=== PATIENT | male | born 1980 | race Caucasian/White ===

== ENCOUNTER 2017-05-23 19:40 | Emergency (ER) | payer MEDICAID, MEDICARE ==
[~2017-05-23] VITALS: Ht 180.3 cm; Wt 93.0 kg
[~2017-05-23 19:40] MED LIST: ALPR0.5T; ARIP1TAB9; HYDR-4683; [UNRECOGNIZED DRUG - OTHER]
[2017-05-23] MEDS ORDERED: LORazepam 2MG/ML-1ML VIAL IV ONE ×2 (20:30→21:45)
[2017-05-23] MEDS ORDERED: SODIUM CHLORIDE 0.9% 1,000 ML IV ONE (20:30)
[2017-05-23 20:31] LABS: Basophils # (auto) 0 uL; Basophils % (auto) 0.3 % (0.0-2.0); Eosinophils # (auto) 0 uL; Eosinophils % (auto) 0.1 % (0.0-7.0); Hematocrit 37.9 % (41.0-53.0); Hemoglobin 12.4 g/dL (13.5-17.5); Lymphocytes # (auto) 0.8 uL; Lymphocytes % (auto) 4.3 % (10.0-50.0); Mean Corpuscular Hemoglobin 28.7 pg (28.0-32.0); Mean Corpuscular Hgb Conc. 32.8 g/dL (32.0-36.0); Mean Corpuscular Volume 87.6 fL (80.0-100.0); Monocytes # (auto) 0.5 uL; Monocytes % (auto) 3.1 % (0.0-12.0); Neutrophils # (auto) 16.5 uL; Neutrophils % (auto) 92.2 % (37.0-80.0); Platelet Count (auto) 240 10^3/uL (140-450); Red Blood Cells 4.33 10^6/uL (4.5-5.90); Red Cell Distribution Width 15.6 % (11.8-14.3); White Blood Cell 17.9 10^3/uL (4.4-10.8)
[2017-05-23 20:53] LABS: INR 0.98 (0.9-1.15); Partial Thromboplastin Time 19.1 sec (22.64-33.71); Prothrombin Time 10.7 sec (9.37-12.3)
[2017-05-23 20:53] LABS: Urine Bacteria NONE SEEN /hpf (None Seen); Urine Blood Negative /uL (Negative); Urine Specific Gravity 1.008 (1.001-1.035); Urine WBC 1 /hpf (0 - 3)
[2017-05-23 21:05] LABS: Phenytoin (Dilantin) < 0.5 ug/mL (10-20); Valproic Acid (Depakene) 3.1 ug/mL (50-100)
[2017-05-23 21:09] LABS: Alcohol, Urine < 3.0 mg/dL (0-5); Amphetamine Screen, Urine NEGATIVE (NEGATIVE); Barbiturate Scree,Urine NEGATIVE (NEGATIVE); Benzodiazephine Screen, Urine POSITIVE (NEGATIVE); Cannabinoid Screen, Urine NEGATIVE (NEGATIVE); Cocaine Screen, Urine NEGATIVE (NEGATIVE); Opiate Scree,Urine POSITIVE (NEGATIVE); Phencyclidine Screen, Urine NEGATIVE (NEGATIVE)
[2017-05-23 21:11] LABS: Alanine Aminotransferase 40 U/L (16-61); Albumin 3.6 g/dL (3.4-5.0); Alkaline Phosphatase 69 U/L (45-117); Anion Gap 8 (5-15); Aspartate Aminotransferase 15 U/L (15-37); BUN/Creatinine Ratio 12.9; Bilirubin, Total 0.1 mg/dL (0.2-1.0); Blood Alcohol < 3.0 mg/dL (0-5); Blood Urea Nitrogen 13 mg/dL (7-18); Calcium 8.5 mg/dL (8.5-10.1); Carbon Dioxide 26 mmol/L (21-32); Chloride 105 mmol/L (98-107); GFR African American 107 mL/min; GFR Non-African American 89 mL/min; Glucose 108 mg/dL (74-106); Magnesium 2.7 mg/dL (1.6-2.6); Potassium 4.4 mmol/L (3.5-5.1); Sodium 139 mmol/L (136-145)
[2017-05-23 23:25] VITALS: BP 153/91
[2017-05-24 00:12] LABS: Lactic Acid w/Reflex 2.7 mmol/L (0.4-2.0)
[2017-05-24] MEDS ORDERED: cefTRIAXone 1GM/10ml IVPUSH 10 ML IV ONE (00:30)
[2017-05-24] MEDS ORDERED: SODIUM CHLORIDE 0.9% 2,000 ML IV ONE (00:30)
[2017-05-24] MEDS ORDERED: MORP60TA25 PO (22:49)
[2017-05-24] MEDS ORDERED: RANI-185 PO (22:49)
[2017-05-24] MEDS ORDERED: PREG100C PO (22:52)
[2017-05-24] MEDS ORDERED: ZOLP10TA PO (22:52)
[2017-05-24] MEDS ORDERED: ALPR2TAB2 PO (22:53)
[2017-05-24] MEDS ORDERED: ESCI10TA PO (22:53)
[2017-05-24] MEDS ORDERED: PRED1PAK10 PO (22:53)
[2017-05-24] MEDS ORDERED: DEXL60CA3 PO (22:53)
[2017-05-24] MEDS ORDERED: PERCOT PO (22:53)
[2017-05-24] MEDS ORDERED: BREX1TAB6 PO (22:53)
[2017-05-24] MEDS ORDERED: ESCI20TA PO (22:53)
== END 2017-05-24 01:36 | disposition home or self-care (01) ==
LOC: EDBD 19:40 → ER 19:40
DX: G40.409 Other generalized epilepsy and epileptic syndromes, not intractable, without status epilepticus (principal); F41.9 Anxiety disorder, unspecified; F32.9 Major depressive disorder, single episode, unspecified; D72.829 Elevated white blood cell count, unspecified; K21.9 Gastro-esophageal reflux disease without esophagitis
CPT/HCPCS: 36415; 70450; 72125; 80053; 80164; 80185; 80307; 80320; 81001; 83605; 83735; 85025; 85610; 85730; 87040; 93005; 96361; 96374; 96375; 96376; 99285; J2060

== ENCOUNTER 2017-07-03 14:17 | Emergency (ER) | payer OTHER ==
[~2017-07-03] VITALS: Ht 182.9 cm; Wt 90.7 kg
[~2017-07-03 14:17] MED LIST changes: -ALPR0.5T; +ALPR2TAB2 PO; -ARIP1TAB9; +BREX1TAB6 PO; +DEXL60CA3 PO; +ESCI10TA PO; +ESCI20TA PO; -HYDR-4683; +MORP60TA25 PO; +PERCOT PO; +PRED1PAK10 PO; +PREG100C PO; +RANI-185 PO; +ZOLP10TA PO; -[UNRECOGNIZED DRUG - OTHER]
[2017-07-03 15:15] LABS: Lymphocytes # (auto) 0.8 uL; Monocytes # (auto) 0.9 uL; Neutrophils # (auto) 15.4 uL; Neutrophils % (auto) 88.7 % (37.0-80.0); White Blood Cell 17.3 10^3/uL (4.4-10.8)
[2017-07-03 15:17] LABS: Basophils # (auto) 0.1 uL; Basophils % (auto) 0.6 % (0.0-2.0); Eosinophils # (auto) 0.1 uL; Eosinophils % (auto) 0.4 % (0.0-7.0); Hematocrit 20.2 % (41.0-53.0); Lymphocytes % (auto) 4.9 % (10.0-50.0); Mean Corpuscular Hgb Conc. 30.1 g/dL (32.0-36.0); Mean Corpuscular Volume 76.3 fL (80.0-100.0); Monocytes % (auto) 5.4 % (0.0-12.0); Nucleated Red Blood Cells % 0.1 %; Platelet Count (auto) 567 10^3/uL (140-450); Red Blood Cells 2.65 10^6/uL (4.5-5.90)
[2017-07-03 15:19] LABS: INR 1.2 (0.9-1.15); Partial Thromboplastin Time 23.7 sec (23.78-33.04); Prothrombin Time 12.7 sec (9.27-12.13)
[2017-07-03 15:30] LABS: Red Cell Distribution Width 25.8 % (11.8-14.3)
[2017-07-03 15:32] LABS: Hemoglobin 6.1 g/dL (13.5-17.5)
[2017-07-03 15:39] LABS: Albumin 2.6 g/dL (3.4-5.0); BUN/Creatinine Ratio 11.9; Bilirubin, Total 0.4 mg/dL (0.2-1.0); Calcium 7.1 mg/dL (8.5-10.1); Magnesium 2.1 mg/dL (1.6-2.6); Potassium 3.6 mmol/L (3.5-5.1); Total Protein 5.6 g/dL (6.4-8.2)
[2017-07-03] MEDS ORDERED: cefTRIAXone 1GM/10ml IVPUSH 10 ML IV ONE (16:45)
[2017-07-03 16:56] VITALS: BP 98/64
[2017-07-03 17:16] VITALS: BP 108/70
[2017-07-03 19:45] VITALS: BP 109/61
== END 2017-07-03 22:52 | disposition left against medical advice (07) ==
LOC: EDBD 14:17 → ER 14:20
DX: J18.9 Pneumonia, unspecified organism (principal); D64.9 Anemia, unspecified; E46 Unspecified protein-calorie malnutrition; R79.89 Other specified abnormal findings of blood chemistry; E83.51 Hypocalcemia; F32.9 Major depressive disorder, single episode, unspecified; F41.1 Generalized anxiety disorder; G89.4 Chronic pain syndrome; R94.5 Abnormal results of liver function studies; K21.9 Gastro-esophageal reflux disease without esophagitis
CPT/HCPCS: 36415; 36430; 71045; 80053; 83605; 83735; 84484; 85025; 85610; 85730; 86850; 86900; 86901; 86920; 87040; 96374; 99285; P9016

== ENCOUNTER 2017-07-19 15:28 | Inpatient (IN) | payer OTHER ==
[~2017-07-19] VITALS: Ht 185.4 cm; Wt 95.4 kg
[2017-07-19] MEDS ORDERED: NALOXONE HCL 0.4 MG/ML VIAL IV ONE ×2 (16:15)
[2017-07-19 16:44] LABS: Hematocrit 19.1 % (41.0-53.0); Red Blood Cells 2.68 10^6/uL (4.5-5.90)
[2017-07-19 16:46] LABS: Mean Corpuscular Hemoglobin 20.3 pg (28.0-32.0); Mean Corpuscular Hgb Conc. 28.5 g/dL (32.0-36.0); Mean Corpuscular Volume 71.1 fL (80.0-100.0); Platelet Count (auto) 541 10^3/uL (140-450)
[2017-07-19 16:59] LABS: Acetaminophen < 2.0 ug/mL (10-30); Salicylate < 1.7 mg/dL (2.8-20.0)
[2017-07-19 17:04] LABS: Red Cell Distribution Width 29.5 % (11.8-14.3)
[2017-07-19 17:06] LABS: Hemoglobin 5.4 g/dL (13.5-17.5); White Blood Cell 34.6 10^3/uL (4.4-10.8)
[2017-07-19 17:07] LABS: Band Neutrophils % (manual) 0; Basophils % (manual) 0 (0.0-2.0); Blast Cells 0; Eosinophils % (manual) 0 (0-7); Promyelocytes % 0; Reactive Lymphocytes 0
[2017-07-19 17:08] LABS: Alanine Aminotransferase 2767 U/L (16-61); Albumin 2.8 g/dL (3.4-5.0); Alkaline Phosphatase 141 U/L (45-117); Anion Gap 19 (5-15); BUN/Creatinine Ratio 8.6; Bilirubin, Total 0.8 mg/dL (0.2-1.0); Blood Alcohol < 3.0 mg/dL (0-5); Blood Urea Nitrogen 33 mg/dL (7-18); Calcium 7.5 mg/dL (8.5-10.1); Carbon Dioxide 20 mmol/L (21-32); Chloride 98 mmol/L (98-107); GFR African American 23 mL/min; GFR Non-African American 19 mL/min; Glucose 126 mg/dL (74-106); Magnesium 3.1 mg/dL (1.6-2.6); Potassium 5.5 mmol/L (3.5-5.1); Sodium 137 mmol/L (136-145); Total Protein 6.1 g/dL (6.4-8.2)
[2017-07-19 17:24] LABS: Lymphocytes % (manual) 11 (10.0-50.0); Metamyelocytes % 4; Monocytes % (manual) 3 (0-12); Myelocytes % 2
[2017-07-19 17:41] LABS: Aspartate Aminotransferase 4486 U/L (15-37)
[2017-07-19] MEDS ORDERED: SODIUM CHLORIDE 0.9% 500 ML IV ONE (18:30)
[2017-07-19] MEDS ORDERED: ACETYLCYSTEINE 20%(200MG/ML) SOLN 30ML PO ONE (18:45)
[2017-07-19] MEDS ORDERED: SODIUM CHLORIDE 0.9% 1,000 ML IV ONE (18:45)
[2017-07-19] MEDS ORDERED: NOREPINEPHRINE 8 MG/250ML KIT 250 ML IV ONE (18:51)
[2017-07-19] MEDS ORDERED: NOREPINEPHRINE 8 MG/250ML KIT 250 ML IV SCH ×2 (19:03→19:15)
[2017-07-19 19:15] VITALS: BP 100/46
[2017-07-19] MEDS ORDERED: OXYCODONE W/ ACETAMINOPHEN 5/325MG TABLET PO PRN (19:15)
[2017-07-19] MEDS ORDERED: DEXTROSE (50%) 50ML SYRG IV PRN (19:15)
[2017-07-19] MEDS: SODIUM CHLORIDE 0.9% 1,000 ML IV SCH (19:19)
[2017-07-19 19:30] VITALS: BP 155/53
[2017-07-19] MEDS ORDERED: ONDANSETRON HCL 4 MG/2 ML VIAL IV PRN (19:30)
[2017-07-19] MEDS ORDERED: HYDROcodone-ACET 5/325MG TAB PO PRN (19:30)
[2017-07-19] MEDS ORDERED: NITROGLYCERIN 0.4 MG SL TAB SL PRN (19:30)
[2017-07-19] MEDS ORDERED: ACETAMINOPHEN 325 MG TAB PO PRN (19:30)
[2017-07-19] MEDS ORDERED: DOCUSATE SOD 100 MG CAP PO PRN (19:30)
[2017-07-19] MEDS ORDERED: LORazepam 2MG/ML-1ML VIAL IV PRN (19:30)
[2017-07-19] MEDS ORDERED: MORPHINE SULF(PF) 0.5MG/ML 10ML VIAL IV PRN (19:30)
[2017-07-19] MEDS ORDERED: PANTOPRAZOLE 40 MG TAB PO ONE (19:30)
[2017-07-19] MEDS ORDERED: SODIUM POLYSTYRENE SULF 15GM/60ML SUSP PO ONE (19:45)
[2017-07-19 19:53] LABS: INR 1.7 (0.9-1.15); Prothrombin Time 17.7 sec (9.27-12.13)
[2017-07-19 20:37] VITALS: BP 132/69
[2017-07-19 21:25] LABS: % Iron Saturation 8.8 % (20-55)
[2017-07-19] MEDS: PREGABALIN 25 MG CAP PO SCH (22:00)
[2017-07-19] MEDS: REXULTI 4 MG PO SCH (22:00)
[2017-07-19] MEDS: ACCU-CHEK COMFORT CURVE STRIP VI SCH (22:00)
[2017-07-19 22:17] LABS: Urine Amorphous Crystal FEW /hpf (None Seen); Urine Bacteria FEW /hpf (None Seen); Urine Blood 2+ /uL (Negative); Urine WBC 1 /hpf (0 - 3)
[2017-07-19 22:19] VITALS: BP 121/69
[2017-07-19 22:29] LABS: Alcohol, Urine < 3.0 mg/dL (0-5); Amphetamine Screen, Urine NEGATIVE (NEGATIVE); Barbiturate Scree,Urine POSITIVE (NEGATIVE); Benzodiazephine Screen, Urine POSITIVE (NEGATIVE); Cannabinoid Screen, Urine NEGATIVE (NEGATIVE); Cocaine Screen, Urine NEGATIVE (NEGATIVE); Opiate Scree,Urine NEGATIVE (NEGATIVE); Phencyclidine Screen, Urine NEGATIVE (NEGATIVE)
[2017-07-19 22:35] VITALS: BP 125/58
[2017-07-19 22:37] LABS: Albumin 2.4 g/dL (3.4-5.0); BUN/Creatinine Ratio 12.4; Calcium 7.2 mg/dL (8.5-10.1); Potassium 5.5 mmol/L (3.5-5.1)
[2017-07-19 22:45] LABS: Bilirubin, Total 1.2 mg/dL (0.2-1.0); Total Protein 5.5 g/dL (6.4-8.2)
[2017-07-19] MEDS: InsuLIN REG 1unit/0.01ml Soln (100units/ml) SC SCH (23:30)
[2017-07-20] VITALS (19 sets, daily range): BP systolic 94–154; BP diastolic 64–98
[2017-07-20] MEDS: SODIUM CHLORIDE 0.9% 1,000 ML IV SCH ×3 (03:39→22:53)
[2017-07-20] MEDS ORDERED: diphenhdrAMINE HCL 50 MG/1 ML VL IV ONE (05:30)
[2017-07-20] MEDS ORDERED: HALOPERIDOL LACTATE 5 MG/ML INJ VIAL IM ONE (05:30)
[2017-07-20] MEDS: methylPREDNISolone SOD SUCC 40 MG/ML VL IV SCH ×3 (06:00→12:38)
[2017-07-20] MEDS: PREGABALIN 25 MG CAP PO SCH ×3 (06:00→21:51)
[2017-07-20 06:25] LABS: Albumin 2.3 g/dL (3.4-5.0); Calcium 6.9 mg/dL (8.5-10.1); Potassium 5.1 mmol/L (3.5-5.1)
[2017-07-20 06:27] LABS: BUN/Creatinine Ratio 17.5; Hematocrit 19.1 % (41.0-53.0); Mean Corpuscular Hemoglobin 22.5 pg (28.0-32.0); Mean Corpuscular Hgb Conc. 30.8 g/dL (32.0-36.0); Platelet Count (auto) 396 10^3/uL (140-450); Red Blood Cells 2.61 10^6/uL (4.5-5.90); White Blood Cell 19.7 10^3/uL (4.4-10.8)
[2017-07-20 06:35] LABS: Red Cell Distribution Width 28.3 % (11.8-14.3)
[2017-07-20 06:37] LABS: Hemoglobin 5.9 g/dL (13.5-17.5)
[2017-07-20 06:38] LABS: Basophils % (manual) 0 (0.0-2.0); Blast Cells 0; Metamyelocytes % 0; Monocytes % (manual) 0 (0-12); Myelocytes % 0; Promyelocytes % 0; Reactive Lymphocytes 0
[2017-07-20] MEDS: ACCU-CHEK COMFORT CURVE STRIP VI SCH ×4 (06:38→21:51)
[2017-07-20] MEDS: InsuLIN REG 1unit/0.01ml Soln (100units/ml) SC SCH ×4 (06:38→22:00)
[2017-07-20 06:39] LABS: Bilirubin, Total 1.1 mg/dL (0.2-1.0); Total Protein 4.9 g/dL (6.4-8.2)
[2017-07-20 07:33] LABS: Band Neutrophils % (manual) 2; Eosinophils % (manual) 1 (0-7); Lymphocytes % (manual) 1 (10.0-50.0)
[2017-07-20] MEDS ORDERED: ACETYLCYSTEINE 20%(200MG/ML) SOLN 30ML PO ONE (09:15)
[2017-07-20] MEDS ORDERED: PANTOPRAZOLE 40 MG TAB PO SCH (10:00)
[2017-07-20] MEDS: MULTIPLE VITAMIN TAB PO SCH (10:16)
[2017-07-20] MEDS: CITALOPRAM HYDROBR 20 MG TAB PO SCH (10:16)
[2017-07-20] MEDS: LEVETIRACETAM 500 MG TAB PO SCH ×2 (12:50→21:50)
[2017-07-20] MEDS ORDERED: ACETYLCYSTEINE 20%(200MG/ML) SOLN 30ML PO SCH ×2 (14:00)
[2017-07-20] MEDS ORDERED: PANTOPRAZOLE 40 MG/10 ML VIAL IV ONE (14:15)
[2017-07-20] MEDS: ACETYLCYSTEINE 200MG/ML IV SOL 10,000 MG in D5W 5% 1,000 ML IV SCH (15:47)
[2017-07-20] MEDS ORDERED: ALBU1AER4 IN (17:55)
[2017-07-20] MEDS ORDERED: LEVE500T22 PO (17:55)
[2017-07-20] MEDS ORDERED: MORP30TA PO (17:55)
[2017-07-20] MEDS ORDERED: FLUT1INH6 IN (17:55)
[2017-07-20] MEDS ORDERED: ONDA8TAB6 PO (17:55)
[2017-07-20 19:06] LABS: Hemoglobin 8.2 g/dL (13.5-17.5)
[2017-07-20 19:08] LABS: Mean Corpuscular Hemoglobin 24.8 pg (28.0-32.0); Mean Corpuscular Hgb Conc. 31.6 g/dL (32.0-36.0); Mean Corpuscular Volume 78.6 fL (80.0-100.0); Platelet Count (auto) 369 10^3/uL (140-450); Red Blood Cells 3.31 10^6/uL (4.5-5.90); White Blood Cell 29.3 10^3/uL (4.4-10.8)
[2017-07-20 19:17] LABS: Protein, Urine 75.5 mg/dL (0.0-11.9)
[2017-07-20 19:28] LABS: Red Cell Distribution Width 25.3 % (11.8-14.3)
[2017-07-20 19:29] LABS: Basophils % (manual) 0 (0.0-2.0); Blast Cells 0; Eosinophils % (manual) 0 (0-7); Metamyelocytes % 0; Myelocytes % 0; Promyelocytes % 0; Reactive Lymphocytes 0
[2017-07-20 19:40] LABS: Band Neutrophils % (manual) 5; Lymphocytes % (manual) 4 (10.0-50.0); Monocytes % (manual) 6 (0-12)
[2017-07-20] MEDS: PANTOPRAZOLE 40 MG/10 ML VIAL IV SCH (21:51)
[2017-07-20] MEDS: REXULTI 4 MG PO SCH (22:00)
[2017-07-21] VITALS: BP 150/92
[2017-07-21 04:00] VITALS: BP 138/86
[2017-07-21 05:07] LABS: Basophils # (auto) 0.1 uL; Eosinophils # (auto) 0 uL; Eosinophils % (auto) 0.1 % (0.0-7.0); Hemoglobin 7.3 g/dL (13.5-17.5); Nucleated Red Blood Cells % 0.2 %
[2017-07-21 05:10] LABS: Basophils % (auto) 0.2 % (0.0-2.0); Hematocrit 22.7 % (41.0-53.0); Lymphocytes # (auto) 0.8 uL; Lymphocytes % (auto) 3.2 % (10.0-50.0); Mean Corpuscular Volume 78.2 fL (80.0-100.0); Monocytes # (auto) 0.8 uL; Monocytes % (auto) 3.2 % (0.0-12.0); Neutrophils # (auto) 22.8 uL; Neutrophils % (auto) 93.3 % (37.0-80.0); Platelet Count (auto) 336 10^3/uL (140-450); White Blood Cell 24.4 10^3/uL (4.4-10.8)
[2017-07-21 05:13] LABS: Red Cell Distribution Width 25.6 % (11.8-14.3)
[2017-07-21 05:21] LABS: INR 1.38 (0.9-1.15); Prothrombin Time 14.5 sec (9.27-12.13)
[2017-07-21 05:31] LABS: Albumin 2.2 g/dL (3.4-5.0); BUN/Creatinine Ratio 29.1; Calcium 7.6 mg/dL (8.5-10.1); Magnesium 2.9 mg/dL (1.6-2.6); Potassium 3.9 mmol/L (3.5-5.1); Total Protein 4.6 g/dL (6.4-8.2)
[2017-07-21] MEDS: ACCU-CHEK COMFORT CURVE STRIP VI SCH ×4 (05:47→21:28)
[2017-07-21] MEDS: SODIUM CHLORIDE 0.9% 1,000 ML IV SCH (05:47)
[2017-07-21] MEDS: PREGABALIN 25 MG CAP PO SCH ×3 (05:47→21:27)
[2017-07-21] MEDS: InsuLIN REG 1unit/0.01ml Soln (100units/ml) SC SCH ×4 (05:48→22:00)
[2017-07-21 07:30] VITALS: BP 141/82
[2017-07-21] MEDS: ACETYLCYSTEINE 200MG/ML IV SOL 10,000 MG in D5W 5% 1,000 ML IV SCH ×2 (09:10→23:49)
[2017-07-21] MEDS ORDERED: methylPREDNISolone SOD SUCC 40 MG/ML VL IV SCH (10:00)
[2017-07-21] MEDS: PANTOPRAZOLE 40 MG/10 ML VIAL IV SCH ×2 (10:38→21:27)
[2017-07-21] MEDS: CITALOPRAM HYDROBR 20 MG TAB PO SCH (10:39)
[2017-07-21] MEDS: LEVETIRACETAM 500 MG TAB PO SCH ×2 (10:39→21:27)
[2017-07-21] MEDS: MULTIPLE VITAMIN TAB PO SCH (10:39)
[2017-07-21 11:52] VITALS: BP 137/82
[2017-07-21] MEDS: SODIUM BICARBONATE 50ML VIAL 50 ML in D5W/SOD CHL 0.45% 1,000 ML IV SCH ×3 (11:55→23:49)
[2017-07-21 16:00] VITALS: BP 118/80
[2017-07-21 20:00] VITALS: BP 137/82
[2017-07-21] MEDS: REXULTI 4 MG PO SCH (21:27)
[2017-07-22] VITALS (8 sets, daily range): BP systolic 119–135; BP diastolic 77–92
[2017-07-22 03:10] LABS: Basophils # (auto) 0 uL; Eosinophils # (auto) 0 uL; Hematocrit 20.7 % (41.0-53.0); Mean Corpuscular Hgb Conc. 31.9 g/dL (32.0-36.0); Monocytes # (auto) 0.6 uL; Nucleated Red Blood Cells % 0.1 %
[2017-07-22 03:11] LABS: Basophils % (auto) 0.2 % (0.0-2.0); Lymphocytes # (auto) 0.5 uL; Lymphocytes % (auto) 2.4 % (10.0-50.0); Mean Corpuscular Hemoglobin 24.7 pg (28.0-32.0); Mean Corpuscular Volume 77.3 fL (80.0-100.0); Monocytes % (auto) 3.2 % (0.0-12.0); Neutrophils # (auto) 17.9 uL; Neutrophils % (auto) 94.2 % (37.0-80.0); Platelet Count (auto) 289 10^3/uL (140-450); Red Blood Cells 2.68 10^6/uL (4.5-5.90)
[2017-07-22 03:16] LABS: Red Cell Distribution Width 26.3 % (11.8-14.3)
[2017-07-22 03:17] LABS: Hemoglobin 6.6 g/dL (13.5-17.5)
[2017-07-22 03:22] LABS: INR 1.33 (0.9-1.15)
[2017-07-22 03:33] LABS: Albumin 1.9 g/dL (3.4-5.0); Calcium 7.5 mg/dL (8.5-10.1); Magnesium 2.4 mg/dL (1.6-2.6); Potassium 3.9 mmol/L (3.5-5.1)
[2017-07-22 03:52] LABS: Bilirubin, Total 0.6 mg/dL (0.2-1.0); Total Protein 4.5 g/dL (6.4-8.2)
[2017-07-22] MEDS: InsuLIN REG 1unit/0.01ml Soln (100units/ml) SC SCH ×5 (06:37→21:51)
[2017-07-22] MEDS: ACCU-CHEK COMFORT CURVE STRIP VI SCH ×4 (06:37→21:51)
[2017-07-22] MEDS: PREGABALIN 25 MG CAP PO SCH ×3 (06:45→21:22)
[2017-07-22] MEDS ORDERED: predniSONE 20 MG TAB PO SCH (10:00)
[2017-07-22] MEDS: PANTOPRAZOLE 40 MG/10 ML VIAL IV SCH ×2 (10:45→21:21)
[2017-07-22] MEDS: CITALOPRAM HYDROBR 20 MG TAB PO SCH (10:45)
[2017-07-22] MEDS: LEVETIRACETAM 500 MG TAB PO SCH ×2 (10:46→21:21)
[2017-07-22] MEDS: MULTIPLE VITAMIN TAB PO SCH (10:46)
[2017-07-22] MEDS ORDERED: LACTULOSE 20Gm/30ML SOLN PO PRN (12:00)
[2017-07-22] MEDS ORDERED: LACTULOSE 20Gm/30ML SOLN PO ONE (12:00)
[2017-07-22] MEDS: SODIUM BICARBONATE 50ML VIAL 50 ML in D5W/SOD CHL 0.45% 1,000 ML IV SCH (12:54)
[2017-07-22] MEDS: ACETYLCYSTEINE 200MG/ML IV SOL 10,000 MG in D5W 5% 1,000 ML IV SCH (18:50)
[2017-07-22] MEDS: DOCUSATE SOD 100 MG CAP PO SCH (21:21)
[2017-07-22] MEDS: REXULTI 4 MG PO SCH (21:28)
[2017-07-22] MEDS ORDERED: ZOLPIDEM TARTRATE 5 MG TAB PO ONE (22:00)
[2017-07-23] VITALS (7 sets, daily range): BP systolic 105–143; BP diastolic 70–89
[2017-07-23] MEDS: SODIUM BICARBONATE 50ML VIAL 50 ML in D5W/SOD CHL 0.45% 1,000 ML IV SCH ×2 (03:00→17:51)
[2017-07-23 05:33] LABS: Basophils # (auto) 0 uL; Basophils % (auto) 0.2 % (0.0-2.0); Eosinophils # (auto) 0 uL; Lymphocytes # (auto) 0.8 uL
[2017-07-23 05:36] LABS: Eosinophils % (auto) 0.1 % (0.0-7.0); Hemoglobin 8.8 g/dL (13.5-17.5); Lymphocytes % (auto) 4.6 % (10.0-50.0); Mean Corpuscular Hemoglobin 26.4 pg (28.0-32.0); Mean Corpuscular Hgb Conc. 32.7 g/dL (32.0-36.0); Mean Corpuscular Volume 80.8 fL (80.0-100.0); Monocytes # (auto) 1.2 uL; Monocytes % (auto) 6.5 % (0.0-12.0); Neutrophils # (auto) 16.3 uL; Neutrophils % (auto) 88.6 % (37.0-80.0); Nucleated Red Blood Cells % 0.1 %; Platelet Count (auto) 251 10^3/uL (140-450); Red Blood Cells 3.35 10^6/uL (4.5-5.90); White Blood Cell 18.4 10^3/uL (4.4-10.8)
[2017-07-23 05:57] LABS: Albumin 2.1 g/dL (3.4-5.0); BUN/Creatinine Ratio 24.4; Calcium 7.7 mg/dL (8.5-10.1); Potassium 3.9 mmol/L (3.5-5.1)
[2017-07-23 06:06] LABS: Bilirubin, Total 0.8 mg/dL (0.2-1.0); Total Protein 4.6 g/dL (6.4-8.2)
[2017-07-23] MEDS: InsuLIN REG 1unit/0.01ml Soln (100units/ml) SC SCH ×4 (06:06→21:53)
[2017-07-23] MEDS: ACCU-CHEK COMFORT CURVE STRIP VI SCH ×4 (06:06→21:32)
[2017-07-23] MEDS: PREGABALIN 25 MG CAP PO SCH ×3 (06:07→21:30)
[2017-07-23] MEDS: MULTIPLE VITAMIN TAB PO SCH (09:57)
[2017-07-23] MEDS: LEVETIRACETAM 500 MG TAB PO SCH ×2 (09:57→21:30)
[2017-07-23] MEDS: DOCUSATE SOD 100 MG CAP PO SCH ×2 (09:57→21:30)
[2017-07-23] MEDS: CITALOPRAM HYDROBR 20 MG TAB PO SCH (09:57)
[2017-07-23] MEDS: PANTOPRAZOLE 40 MG/10 ML VIAL IV SCH ×2 (09:57→21:30)
[2017-07-23 14:31] LABS: Albumin 2.3 g/dL (3.4-5.0); Bilirubin, Direct 0.3 mg/dL (0-0.2); Bilirubin, Total 0.8 mg/dL (0.2-1.0); Total Protein 4.9 g/dL (6.4-8.2)
[2017-07-23] MEDS: ENOXAPARIN SOD 100 MG/1 ML SYRINGE SC SCH ×2 (15:48→21:32)
[2017-07-23] MEDS: REXULTI 4 MG PO SCH (21:30)
[2017-07-23] MEDS: ZOLPIDEM TARTRATE 5 MG TAB PO PRN (21:50)
[2017-07-24 03:42] VITALS: BP 121/88
[2017-07-24 03:56] LABS: Basophils # (auto) 0 uL; Basophils % (auto) 0.2 % (0.0-2.0); Eosinophils # (auto) 0.3 uL; Eosinophils % (auto) 1.5 % (0.0-7.0); Hematocrit 29.2 % (41.0-53.0); Hemoglobin 9.5 g/dL (13.5-17.5); Lymphocytes # (auto) 1.6 uL; Lymphocytes % (auto) 8.8 % (10.0-50.0); Mean Corpuscular Hemoglobin 25.8 pg (28.0-32.0); Mean Corpuscular Hgb Conc. 32.4 g/dL (32.0-36.0); Mean Corpuscular Volume 79.5 fL (80.0-100.0); Monocytes # (auto) 1.1 uL; Monocytes % (auto) 6.1 % (0.0-12.0); Neutrophils # (auto) 14.7 uL; Neutrophils % (auto) 83.4 % (37.0-80.0); Nucleated Red Blood Cells % 0.1 %; Platelet Count (auto) 283 10^3/uL (140-450); Red Blood Cells 3.67 10^6/uL (4.5-5.90); White Blood Cell 17.6 10^3/uL (4.4-10.8)
[2017-07-24 04:07] LABS: Red Cell Distribution Width 23.8 % (11.8-14.3)
[2017-07-24 04:15] LABS: Albumin 2.3 g/dL (3.4-5.0); Calcium 7.3 mg/dL (8.5-10.1); Potassium 3.4 mmol/L (3.5-5.1)
[2017-07-24 04:17] LABS: BUN/Creatinine Ratio 18.2
[2017-07-24 04:20] LABS: Bilirubin, Total 1.2 mg/dL (0.2-1.0); Total Protein 5.1 g/dL (6.4-8.2)
[2017-07-24] MEDS: PREGABALIN 25 MG CAP PO SCH ×3 (05:57→21:43)
[2017-07-24] MEDS: ACCU-CHEK COMFORT CURVE STRIP VI SCH ×4 (06:07→21:43)
[2017-07-24] MEDS: InsuLIN REG 1unit/0.01ml Soln (100units/ml) SC SCH ×4 (06:07→21:43)
[2017-07-24] MEDS: DOCUSATE SOD 100 MG CAP PO SCH ×2 (10:00→21:50)
[2017-07-24] MEDS: ENOXAPARIN SOD 100 MG/1 ML SYRINGE SC SCH ×2 (10:43→21:44)
[2017-07-24] MEDS: LEVETIRACETAM 500 MG TAB PO SCH ×2 (10:43→21:43)
[2017-07-24] MEDS: MULTIPLE VITAMIN TAB PO SCH (10:43)
[2017-07-24] MEDS: CITALOPRAM HYDROBR 20 MG TAB PO SCH (10:43)
[2017-07-24] MEDS: PANTOPRAZOLE 40 MG/10 ML VIAL IV SCH ×2 (10:44→21:42)
[2017-07-24] MEDS: SODIUM BICARBONATE 50ML VIAL 50 ML in D5W/SOD CHL 0.45% 1,000 ML IV SCH (10:44)
[2017-07-24 12:00] VITALS: BP 136/83
[2017-07-24 15:57] VITALS: BP 132/88
[2017-07-24 19:53] VITALS: BP 153/83
[2017-07-24] MEDS: REXULTI 4 MG PO SCH (21:43)
[2017-07-24] MEDS: ZOLPIDEM TARTRATE 5 MG TAB PO PRN (21:43)
[2017-07-25] VITALS: BP 118/81
[2017-07-25 04:00] VITALS: BP 114/70
[2017-07-25 06:02] LABS: Basophils # (auto) 0 uL; Basophils % (auto) 0.1 % (0.0-2.0); Eosinophils # (auto) 0.5 uL; Lymphocytes # (auto) 1.2 uL; Mean Corpuscular Volume 78.1 fL (80.0-100.0); Monocytes # (auto) 1.1 uL
[2017-07-25 06:04] LABS: Hematocrit 27.1 % (41.0-53.0); Lymphocytes % (auto) 10.8 % (10.0-50.0); Mean Corpuscular Hemoglobin 25.9 pg (28.0-32.0); Mean Corpuscular Hgb Conc. 33.1 g/dL (32.0-36.0); Monocytes % (auto) 10.3 % (0.0-12.0); Neutrophils # (auto) 8.3 uL; Neutrophils % (auto) 74.8 % (37.0-80.0); Platelet Count (auto) 273 10^3/uL (140-450); Red Blood Cells 3.47 10^6/uL (4.5-5.90); White Blood Cell 11.1 10^3/uL (4.4-10.8)
[2017-07-25 06:14] LABS: Potassium 3.2 mmol/L (3.5-5.1)
[2017-07-25] MEDS: ACCU-CHEK COMFORT CURVE STRIP VI SCH ×2 (06:16→11:30)
[2017-07-25] MEDS: InsuLIN REG 1unit/0.01ml Soln (100units/ml) SC SCH ×2 (06:16→11:30)
[2017-07-25] MEDS: PREGABALIN 25 MG CAP PO SCH (06:16)
[2017-07-25 06:21] LABS: Albumin 2.1 g/dL (3.4-5.0); Calcium 7.2 mg/dL (8.5-10.1)
[2017-07-25 06:23] LABS: Bilirubin, Total 1.2 mg/dL (0.2-1.0)
[2017-07-25 08:00] VITALS: BP 113/71
[2017-07-25] MEDS: DOCUSATE SOD 100 MG CAP PO SCH (10:00)
[2017-07-25] MEDS: LEVETIRACETAM 500 MG TAB PO SCH (10:00)
[2017-07-25] MEDS: ENOXAPARIN SOD 100 MG/1 ML SYRINGE SC SCH (10:32)
[2017-07-25] MEDS: MULTIPLE VITAMIN TAB PO SCH (10:32)
[2017-07-25] MEDS: PANTOPRAZOLE 40 MG/10 ML VIAL IV SCH (10:32)
[2017-07-25] MEDS: CITALOPRAM HYDROBR 20 MG TAB PO SCH (10:33)
[2017-07-25 13:01] VITALS: BP 113/71
== END 2017-07-25 12:16 | disposition home or self-care (01) | DRG 917 ==
LOC: EDBD 15:28 → ER 15:34 → OVERFLOW 15:35 → DOU IN ICU 07-20 16:54
PROVIDERS: ADMIT Nurse Practitioner Family; ATTEND Family Medicine
PROC: 30233N1 Transfusion of Nonautologous Red Blood Cells into Peripheral Vein, Percutaneous Approach (ICD-10-PCS; principal; 2017-07-19)
DX: T40.3X1A Poisoning by methadone, accidental (unintentional), initial encounter (principal); G92 Toxic encephalopathy; N17.0 Acute kidney failure with tubular necrosis; E43 Unspecified severe protein-calorie malnutrition; J18.9 Pneumonia, unspecified organism; J96.01 Acute respiratory failure with hypoxia; N18.4 Chronic kidney disease, stage 4 (severe); D50.9 Iron deficiency anemia, unspecified; E11.21 Type 2 diabetes mellitus with diabetic nephropathy; E66.9 Obesity, unspecified; E83.41 Hypermagnesemia; E87.5 Hyperkalemia; E83.51 Hypocalcemia; J45.909 Unspecified asthma, uncomplicated; K21.9 Gastro-esophageal reflux disease without esophagitis; E11.22 Type 2 diabetes mellitus with diabetic chronic kidney disease; E11.65 Type 2 diabetes mellitus with hyperglycemia; F32.9 Major depressive disorder, single episode, unspecified; F41.9 Anxiety disorder, unspecified; G40.409 Other generalized epilepsy and epileptic syndromes, not intractable, without status epilepticus; G89.4 Chronic pain syndrome; I80.8 Phlebitis and thrombophlebitis of other sites; K44.9 Diaphragmatic hernia without obstruction or gangrene; K71.6 Toxic liver disease with hepatitis, not elsewhere classified; K76.0 Fatty (change of) liver, not elsewhere classified; Y92.89 Other specified places as the place of occurrence of the external cause; Z79.899 Other long term (current) drug therapy; Z80.0 Family history of malignant neoplasm of digestive organs; Z82.49 Family history of ischemic heart disease and other diseases of the circulatory system; Z82.5 Family history of asthma and other chronic lower respiratory diseases; Z83.2 Family history of diseases of the blood and blood-forming organs and certain disorders involving the immune mechanism; Z87.11 Personal history of peptic ulcer disease; Z98.84 Bariatric surgery status; Z88.8 Allergy status to other drugs, medicaments and biological substances; Z88.1 Allergy status to other antibiotic agents; Z88.2 Allergy status to sulfonamides; Z68.27 Body mass index [BMI] 27.0-27.9, adult
CPT/HCPCS: 36415; 36430; 70450; 71045; 74176; 76705; 76775; 80053; 80076; 80307; 80320; 80329; 81001; 82140; 82550; 82570; 82962; 83036; 83540; 83550; 83605; 83735; 84156; 84300; 84443; 85007; 85025; 85027; 85610; 86704; 86706; 86708; 86803; 86850; 86900; 86901; 86920; 87081; 87086; 87340; 93005; 93971; 95819; 96361; 96374; 97530; 99291; C9113; G0378; J1815

== ENCOUNTER 2017-12-20 11:05 | Emergency (ER) | payer OTHER ==
[~2017-12-20] VITALS: Ht 182.9 cm; Wt 86.2 kg
[~2017-12-20 11:05] MED LIST changes: +ALBU1AER4 IN; +FLUT1INH6 IN; +LEVE500T22 PO; +MORP30TA PO; -MORP60TA25 PO; +ONDA-143 PO
[2017-12-20 11:12] VITALS: BP 120/76
[2017-12-20] MEDS ORDERED: TETANUS-DIPTH-ACEL PERTUSSIS 0.5ML SYRG IM ONE (12:45)
== END 2017-12-20 13:17 | disposition home or self-care (01) ==
LOC: ER 11:05
DX: S61.214A Laceration without foreign body of right ring finger without damage to nail, initial encounter (principal); J45.909 Unspecified asthma, uncomplicated; K21.9 Gastro-esophageal reflux disease without esophagitis; Z88.1 Allergy status to other antibiotic agents; Z88.8 Allergy status to other drugs, medicaments and biological substances; Z88.2 Allergy status to sulfonamides; Z79.51 Long term (current) use of inhaled steroids; Z79.891 Long term (current) use of opiate analgesic; Z79.899 Other long term (current) drug therapy; W26.0XXA Contact with knife, initial encounter; Y93.89 Activity, other specified; Y99.8 Other external cause status; Y92.89 Other specified places as the place of occurrence of the external cause
CPT/HCPCS: 12001; 90471; 90715

== ENCOUNTER 2021-04-15 07:53 | Inpatient (IN) | payer OTHER ==
[~2021-04-15] VITALS: Ht 170.2 cm; Wt 74.0 kg
[~2021-04-15 07:53] MED LIST changes: -DEXL60CA3 PO; +DEXL60CA4 PO; -LEVE500T22 PO; +LEVE500T32 PO
[2021-04-15] MEDS ORDERED: NALOXONE HCL 0.4 MG/ML VIAL IM ONE (08:15)
[2021-04-15 08:44] LABS: Basophils # (auto) 0 10 ^3/uL (0-0.2); Basophils % (auto) 0.1 % (0.0-2.0); Eosinophils # (auto) 0 10 ^3/uL (0-0.8); Eosinophils % (auto) 0.2 % (0.0-7.0); Hematocrit 44.1 % (41.0-53.0); Hemoglobin 14.6 g/dL (13.5-17.5); Lymphocytes # (auto) 0.5 10 ^3/uL (0.4-5.4); Lymphocytes % (auto) 4.5 % (10.0-50.0); Mean Corpuscular Hemoglobin 28.3 pg (28.0-32.0); Mean Corpuscular Hgb Conc. 33.1 g/dL (32.0-36.0); Mean Corpuscular Volume 85.5 fL (80.0-100.0); Monocytes # (auto) 0.8 10 ^3/uL (0-1.3); Monocytes % (auto) 7.7 % (0.0-12.0); Neutrophils # (auto) 8.8 10 ^3/uL (1.6-8.6); Neutrophils % (auto) 87.5 % (37.0-80.0); Red Blood Cells 5.16 10^6/uL (4.5-5.90); White Blood Cell 10.1 10^3/uL (4.4-10.8)
[2021-04-15 09:00] LABS: Albumin 3.6 g/dL (3.4-5.0); Anion Gap 7 (5-15); Blood Alcohol < 3.0 mg/dL (0-5); Blood Urea Nitrogen 11 mg/dL (7-18); Calcium 7.8 mg/dL (8.5-10.1); Carbon Dioxide 27 mmol/L (21-32); Chloride 108 mmol/L (98-107); Glucose 95 mg/dL (74-106); Potassium 3.6 mmol/L (3.5-5.1); Sodium 142 mmol/L (136-145)
[2021-04-15 09:03] LABS: Alanine Aminotransferase 25 U/L (16-61); Alkaline Phosphatase 125 U/L (45-117); Aspartate Aminotransferase 19 U/L (15-37); BUN/Creatinine Ratio 8.3; Bilirubin, Total 0.4 mg/dL (0.2-1.0); GFR African American 77 mL/min; GFR Non-African American 63 mL/min; Total Protein 6.8 g/dL (6.4-8.2)
[2021-04-15] MEDS ORDERED: NALOXONE HCL 1MG/ML 2ML SYRINGE ONE (09:11)
[2021-04-15] MEDS ORDERED: NALOXONE HCL 1MG/ML 2ML SYRINGE IV ONE (09:15)
[2021-04-15 10:11] LABS: Acetaminophen < 2.0 ug/mL (10-30); Salicylate < 1.7 mg/dL (2.8-20.0)
[2021-04-15 10:33] LABS: Alcohol, Urine < 3.0 mg/dL (0-10); Amphetamine Screen, Urine NEGATIVE (NEGATIVE); Barbiturate Scree,Urine NEGATIVE (NEGATIVE); Benzodiazephine Screen, Urine POSITIVE (NEGATIVE); Cannabinoid Screen, Urine NEGATIVE (NEGATIVE); Cocaine Screen, Urine NEGATIVE (NEGATIVE); Opiate Scree,Urine POSITIVE (NEGATIVE); Phencyclidine Screen, Urine NEGATIVE (NEGATIVE)
[2021-04-15 12:59] LABS: Urine Bacteria NONE SEEN /hpf (None Seen); Urine Blood Negative /uL (Negative); Urine Hyaline Cast FEW /lpf (0 - 2); Urine WBC 1 /hpf (0 - 3)
[2021-04-15] MEDS ORDERED: NITROGLYCERIN 0.4 MG SL TAB SL PRN (14:45)
[2021-04-15] MEDS ORDERED: SODIUM CHLORIDE 0.9% 1,000 ML IV ONE (14:45)
[2021-04-15] MEDS ORDERED: MORPHINE SULFATE INJECTION 2 MG/ML SYRG IV PRN (14:45)
[2021-04-15] MEDS ORDERED: ENOXAPARIN SOD 80 MG/0.8ML SYRINGE SC ONE (15:15)
[2021-04-15] MEDS ORDERED: IPRATROPIUM BROM 0.5 MG/2.5ML INH SOL NEB ONE (16:00)
[2021-04-15] MEDS ORDERED: DOCUSATE SOD 100 MG CAP PO PRN (16:00)
[2021-04-15] MEDS ORDERED: PANTOPRAZOLE 40 MG/10 ML VIAL INJ IV ONE (16:00)
[2021-04-15] MEDS ORDERED: LORazepam 2MG/ML-1ML VIAL IV PRN (16:00)
[2021-04-15] MEDS ORDERED: THIAMINE 100mg/ml INJ (200mg/2ml VIAL) IV ONE (16:00)
[2021-04-15] MEDS ORDERED: FOLIC ACID 1 MG TAB PO ONE (16:00)
[2021-04-15] MEDS ORDERED: ALBUTEROL SULF 2.5 MG/0.5ML(0.5%) NEB SOLN NEB ONE (16:00)
[2021-04-15] MEDS ORDERED: BUDESONIDE (INHALATION) 0.5 MG/2 ML NEB NEB ONE (16:00)
[2021-04-15] MEDS ORDERED: MONTELUKAST SODIUM 10 MG TAB PO ONE (16:00)
[2021-04-15] MEDS ORDERED: ONDANSETRON HCL 4 MG/2 ML VIAL IV PRN (16:00)
[2021-04-15] MEDS ORDERED: hydrALAZINE HCL 20 MG/ML VL IV PRN (16:00)
[2021-04-15] MEDS ORDERED: MORPHINE SULFATE 4 MG/ML SYR/VIAL IV PRN (16:00)
[2021-04-15] MEDS ORDERED: LACTULOSE 20Gm/30ML SOLN PO PRN (16:00)
[2021-04-15] MEDS ORDERED: SUCRALFATE 1 GM/10 ML ORAL SUSP PO ONE (16:00)
[2021-04-15] MEDS ORDERED: MULTIPLE VITAMINS W/ MINERALS TAB PO ONE (16:00)
[2021-04-15] MEDS ORDERED: levoFLOXacin 500MG 100 ML IV ONE (16:15)
[2021-04-15] MEDS ORDERED: methylPREDNISolone SOD SUCC 125 MG/2 ML VL IV ONE (16:15)
[2021-04-15] MEDS ORDERED: ACETAMINOPHEN 325 MG TAB PO PRN (16:15)
[2021-04-15 16:24] VITALS: BP 109/79
[2021-04-15 16:53] LABS: Magnesium 2.3 mg/dL (1.6-2.6); Phosphorus 4.3 mg/dL (2.5-4.90)
[2021-04-15] MEDS: SODIUM CHLORIDE 0.9% 1,000 ML IV SCH (17:45)
[2021-04-15] MEDS ORDERED: IPRATROPIUM BROM 0.5 MG/2.5ML INH SOL NEB SCH (18:00)
[2021-04-15 18:24] VITALS: BP 95/55
[2021-04-15 19:00] VITALS: BP 95/55
[2021-04-15] MEDS: CALCIUM W/VIT D (600MG/400IU) TAB PO SCH (20:00)
[2021-04-15] MEDS ORDERED: PANT40TA2 PO (20:24)
[2021-04-15] MEDS ORDERED: CLON0.5T3 PO (20:24)
[2021-04-15] MEDS ORDERED: BUTA-251 PO (20:24)
[2021-04-15] MEDS ORDERED: BREX1TAB5 PO (20:24)
[2021-04-15] MEDS ORDERED: VORT1TAB3 PO (20:24)
[2021-04-15 20:56] LABS: INR 1.36 (0.9-1.15); Partial Thromboplastin Time 34.7 sec (23.6-33.0)
[2021-04-15] MEDS: SUCRALFATE 1 GM/10 ML ORAL SUSP PO SCH (21:46)
[2021-04-15] MEDS: methylPREDNISolone SOD SUCC 40 MG/ML VL IV SCH (21:46)
[2021-04-15] MEDS: ATORVASTATIN 20 MG TAB PO SCH (21:47)
[2021-04-15] MEDS: QUEtiapine FUMARATE 25 MG TAB PO SCH (21:47)
[2021-04-15] MEDS: levETIRAcetam 500 MG TAB PO SCH (21:47)
[2021-04-15] MEDS: LORazepam 0.5 MG TAB PO PRN (21:47)
[2021-04-15] MEDS: GABAPENTIN 300 MG CAP PO SCH (21:47)
[2021-04-15 22:00] VITALS: BP 108/66
[2021-04-15] MEDS: IPRATROPIUM BROM 0.5 MG/2.5ML INH SOL NEB PRN (22:19)
[2021-04-15] MEDS: BUDESONIDE (INHALATION) 0.5 MG/2 ML NEB NEB SCH (22:19)
[2021-04-15] MEDS: ACETYLCYSTEINE 10 %(100MG/ML) SOL 4ML NEB SCH (22:19)
[2021-04-15] MEDS: ALBUTEROL SULF 2.5 MG/0.5ML(0.5%) NEB SOLN NEB PRN (22:19)
[2021-04-16 05:00] VITALS: BP 90/56
[2021-04-16] MEDS: SUCRALFATE 1 GM/10 ML ORAL SUSP PO SCH ×4 (05:48→21:21)
[2021-04-16] MEDS: methylPREDNISolone SOD SUCC 40 MG/ML VL IV SCH (05:48)
[2021-04-16] MEDS: GABAPENTIN 300 MG CAP PO SCH ×3 (05:48→21:21)
[2021-04-16 06:58] LABS: Basophils # (auto) 0 10 ^3/uL (0-0.2); Eosinophils # (auto) 0 10 ^3/uL (0-0.8); Hematocrit 39.7 % (41.0-53.0); Hemoglobin 13.2 g/dL (13.5-17.5); Lymphocytes # (auto) 0.4 10 ^3/uL (0.4-5.4); Lymphocytes % (auto) 5.5 % (10.0-50.0); Mean Corpuscular Hemoglobin 28.3 pg (28.0-32.0); Mean Corpuscular Hgb Conc. 33.3 g/dL (32.0-36.0); Monocytes # (auto) 0.1 10 ^3/uL (0-1.3); Monocytes % (auto) 1.3 % (0.0-12.0); Neutrophils # (auto) 6.8 10 ^3/uL (1.6-8.6); Neutrophils % (auto) 93.2 % (37.0-80.0); Red Blood Cells 4.67 10^6/uL (4.5-5.90); White Blood Cell 7.3 10^3/uL (4.4-10.8)
[2021-04-16 07:11] LABS: Potassium 4.1 mmol/L (3.5-5.1)
[2021-04-16 07:12] LABS: INR 1.21 (0.9-1.15); Partial Thromboplastin Time 28.5 sec (23.6-33.0)
[2021-04-16] MEDS: ALBUTEROL SULF 2.5 MG/0.5ML(0.5%) NEB SOLN NEB PRN ×2 (07:16→18:08)
[2021-04-16] MEDS: IPRATROPIUM BROM 0.5 MG/2.5ML INH SOL NEB PRN ×2 (07:16→18:07)
[2021-04-16] MEDS: ACETYLCYSTEINE 10 %(100MG/ML) SOL 4ML NEB SCH (07:16)
[2021-04-16 07:20] LABS: Albumin 3.2 g/dL (3.4-5.0); Bilirubin, Total 0.3 mg/dL (0.2-1.0); CRP High Sensitivity 5.4 mg/dL (< 0.3); Magnesium 2.4 mg/dL (1.6-2.6); Phosphorus 3.4 mg/dL (2.5-4.90); Total Protein 6.3 g/dL (6.4-8.2); Uric Acid 5.5 mg/dL (3.5-7.2)
[2021-04-16 07:24] LABS: Red Cell Distribution Width 20.1 % (11.8-14.3)
[2021-04-16 08:59] VITALS: BP 92/50
[2021-04-16] MEDS: CALCIUM W/VIT D (600MG/400IU) TAB PO SCH ×2 (09:00→17:54)
[2021-04-16] MEDS: CHOLECALCIFEROL (VITD3) 2,000 UNIT CAP/TAB PO SCH (09:00)
[2021-04-16] MEDS: levETIRAcetam 500 MG TAB PO SCH ×2 (09:01→21:22)
[2021-04-16] MEDS: MULTIPLE VITAMINS W/ MINERALS TAB PO SCH (09:01)
[2021-04-16] MEDS: CYANOCOBALAMIN 500 MCG TAB PO SCH (09:01)
[2021-04-16] MEDS: CITALOPRAM HYDROBR 20 MG TAB PO SCH (09:02)
[2021-04-16] MEDS: ASPirin 81 mg TAB PO SCH (09:02)
[2021-04-16] MEDS: FOLIC ACID 1 MG TAB PO SCH (09:02)
[2021-04-16] MEDS: LORazepam 0.5 MG TAB PO PRN ×2 (09:18→21:21)
[2021-04-16] MEDS ORDERED: ONDA-180 PO (10:00)
[2021-04-16] MEDS ORDERED: PANT40TA2 PO (10:00)
[2021-04-16] MEDS ORDERED: BREX1TAB5 PO (10:00)
[2021-04-16] MEDS ORDERED: VORT1TAB3 PO (10:00)
[2021-04-16] MEDS ORDERED: ALBU1AER4 IN (10:00)
[2021-04-16] MEDS ORDERED: PANTOPRAZOLE 40 MG/10 ML VIAL INJ IV SCH (10:00)
[2021-04-16] MEDS ORDERED: ENOXAPARIN SOD 80 MG/0.8ML SYRINGE SC SCH (10:00)
[2021-04-16] MEDS ORDERED: ESCI20TA PO (10:00)
[2021-04-16] MEDS ORDERED: levoFLOXacin 500MG 100 ML IV SCH (10:00)
[2021-04-16] MEDS ORDERED: FLUT1INH6 IN (10:00)
[2021-04-16] MEDS: SODIUM CHLORIDE 0.9% 1,000 ML IV SCH (11:39)
[2021-04-16] MEDS: BUDESONIDE (INHALATION) 0.5 MG/2 ML NEB NEB SCH ×2 (11:46→18:07)
[2021-04-16 13:00] VITALS: BP 91/54
[2021-04-16] MEDS ORDERED: hydrALAZINE HCL 20 MG/ML VL IV PRN (14:00)
[2021-04-16] MEDS ORDERED: LACTULOSE 20Gm/30ML SOLN PO PRN (14:00)
[2021-04-16 16:54] VITALS: BP 91/51
[2021-04-16] MEDS ORDERED: OXYCODONE W/ ACETAMINOPHEN 5/325MG TABLET PO PRN (17:30)
[2021-04-16] MEDS: ATORVASTATIN 20 MG TAB PO SCH (21:22)
[2021-04-16] MEDS: MORPHINE SULF 30 mg ER tab PO SCH (21:23)
[2021-04-16] MEDS: QUEtiapine FUMARATE 25 MG TAB PO SCH (21:23)
[2021-04-16 22:00] VITALS: BP 104/53
[2021-04-16] MEDS ORDERED: MONTELUKAST SODIUM 10 MG TAB PO SCH (22:00)
[2021-04-17 05:00] VITALS: BP 96/60
[2021-04-17] MEDS: GABAPENTIN 300 MG CAP PO SCH ×2 (06:34→14:00)
[2021-04-17] MEDS: SUCRALFATE 1 GM/10 ML ORAL SUSP PO SCH ×2 (06:35→11:30)
[2021-04-17 09:00] VITALS: BP 97/58
[2021-04-17] MEDS: BUDESONIDE (INHALATION) 0.5 MG/2 ML NEB NEB SCH (10:00)
[2021-04-17] MEDS ORDERED: ENOXAPARIN SOD 40 MG/0.4 ML SYRINGE SC SCH (10:00)
[2021-04-17] MEDS: CALCIUM W/VIT D (600MG/400IU) TAB PO SCH (10:09)
[2021-04-17] MEDS: ASPirin 81 mg TAB PO SCH (10:09)
[2021-04-17] MEDS: levETIRAcetam 500 MG TAB PO SCH (10:09)
[2021-04-17] MEDS: CITALOPRAM HYDROBR 20 MG TAB PO SCH (10:09)
[2021-04-17] MEDS: FOLIC ACID 1 MG TAB PO SCH (10:09)
[2021-04-17] MEDS: CYANOCOBALAMIN 500 MCG TAB PO SCH (10:10)
[2021-04-17] MEDS: MULTIPLE VITAMINS W/ MINERALS TAB PO SCH (10:10)
[2021-04-17] MEDS: CHOLECALCIFEROL (VITD3) 2,000 UNIT CAP/TAB PO SCH (10:10)
[2021-04-17] MEDS: MORPHINE SULF 30 mg ER tab PO SCH (10:10)
[2021-04-17 13:00] VITALS: BP 99/67
[2021-04-17 13:10] VITALS: BP 99/67
[2021-04-17 13:43] LABS: Hepatitis A Ab IgM Negative
[2021-04-17 14:34] LABS: Hepatitis B Core IgM Negative
[2021-04-17 14:40] LABS: Hepatitis C Antibody Negative (Negative)
== END 2021-04-17 14:00 | disposition home or self-care (01) | DRG 917 ==
LOC: ER 07:53 → EDBD 07:53 → TELE 14:33 → TELE-EAST 18:24
PROVIDERS: ADMIT Hospitalist; ATTEND Hospitalist
DX: T40.2X1A Poisoning by other opioids, accidental (unintentional), initial encounter (principal); I21.A1 Myocardial infarction type 2; G92.8 Other toxic encephalopathy; J96.00 Acute respiratory failure, unspecified whether with hypoxia or hypercapnia; J45.901 Unspecified asthma with (acute) exacerbation; F11.20 Opioid dependence, uncomplicated; F33.9 Major depressive disorder, recurrent, unspecified; N17.9 Acute kidney failure, unspecified; G89.4 Chronic pain syndrome; K21.9 Gastro-esophageal reflux disease without esophagitis; N18.2 Chronic kidney disease, stage 2 (mild); E66.3 Overweight; E78.5 Hyperlipidemia, unspecified; T42.4X1A Poisoning by benzodiazepines, accidental (unintentional), initial encounter; Z20.822 Contact with and (suspected) exposure to COVID-19; F41.9 Anxiety disorder, unspecified; F17.200 Nicotine dependence, unspecified, uncomplicated; R00.0 Tachycardia, unspecified; G31.9 Degenerative disease of nervous system, unspecified; G40.909 Epilepsy, unspecified, not intractable, without status epilepticus; Z82.5 Family history of asthma and other chronic lower respiratory diseases; Z83.2 Family history of diseases of the blood and blood-forming organs and certain disorders involving the immune mechanism; Z87.11 Personal history of peptic ulcer disease; Z99.3 Dependence on wheelchair; Z82.49 Family history of ischemic heart disease and other diseases of the circulatory system; Z80.0 Family history of malignant neoplasm of digestive organs; Z68.25 Body mass index [BMI] 25.0-25.9, adult; Y92.89 Other specified places as the place of occurrence of the external cause; Z88.2 Allergy status to sulfonamides; Z88.1 Allergy status to other antibiotic agents; Z88.8 Allergy status to other drugs, medicaments and biological substances
CPT/HCPCS: 36415; 36600; 70450; 71045; 80053; 80061; 80074; 80307; 80320; 80329; 81001; 82542; 82550; 82728; 82805; 83036; 83615; 83690; 83735; 83880; 83970; 84100; 84443; 84484; 84550; 85025; 85379; 85610; 85652; 85730; 86141; 87040; 87086; 93005; 93306; 94640; 96361; 96372; 96374; C9113; G0378; J1956

== ENCOUNTER 2021-04-17 23:37 | Emergency (ER) | payer OTHER ==
[~2021-04-17] VITALS: Ht 182.9 cm; Wt 81.6 kg
[~2021-04-17 23:37] MED LIST changes: +BREX1TAB5 PO; +BUTA-251 PO; +CLON0.5T3 PO; +ONDA-180 PO; +PANT40TA2 PO; +VORT1TAB3 PO
[2021-04-18 00:15] VITALS: BP 107/67
== END 2021-04-18 00:49 | disposition home or self-care (01) ==
LOC: ER 23:42
DX: S01.01XA Laceration without foreign body of scalp, initial encounter (principal); K21.9 Gastro-esophageal reflux disease without esophagitis; J45.909 Unspecified asthma, uncomplicated; Z86.2 Personal history of diseases of the blood and blood-forming organs and certain disorders involving the immune mechanism; Z79.899 Other long term (current) drug therapy; Z88.2 Allergy status to sulfonamides; Z88.1 Allergy status to other antibiotic agents; Z88.8 Allergy status to other drugs, medicaments and biological substances; W10.8XXA Fall (on) (from) other stairs and steps, initial encounter; Y93.89 Activity, other specified; Y92.89 Other specified places as the place of occurrence of the external cause; Y99.8 Other external cause status
CPT/HCPCS: 70450

== ENCOUNTER 2022-10-19 10:28 | Emergency (ER) | payer OTHER ==
[~2022-10-19] VITALS: Ht 185.4 cm; Wt 71.6 kg
[~2022-10-19 10:28] MED LIST changes: -BREX1TAB6 PO; -LEVE500T32 PO; +LEVE500T40 PO; -ONDA-143 PO; -RANI-185 PO
[2022-10-19 11:05] VITALS: BP 108/74
[2022-10-19 16:07] VITALS: PULSE 109; RESP 18; TEMP 98.2; O2SAT 94
== END 2022-10-19 16:08 | disposition left against medical advice (07) ==
LOC: ER 10:28
DX: M79.644 Pain in right finger(s) (principal); Z53.21 Procedure and treatment not carried out due to patient leaving prior to being seen by health care provider; W18.39XA Other fall on same level, initial encounter; Y93.89 Activity, other specified; Y92.89 Other specified places as the place of occurrence of the external cause; Y99.8 Other external cause status
CPT/HCPCS: 73140